=== PATIENT | female | born 1980 | race African-American/Black ===

== ENCOUNTER 2016-11-23 01:40 | Emergency (ER) | payer OTHER ==
[~2016-11-23] VITALS: Ht 177.8 cm; Wt 85.0 kg
[~2016-11-23 01:40] MED LIST: LISI-360 PO; MAXA10TA2 PO
[2016-11-23 01:44] VITALS: BP 139/94; PULSE 64; RESP 16; TEMP 98.6; O2SAT 100
[2016-11-23 02:11] VITALS: BP 137/98; PULSE 71; RESP 18; O2SAT 100
[2016-11-23] MEDS ORDERED: LISI10TA3 PO (02:11)
[2016-11-23] MEDS ORDERED: IMIT25TA PO (02:13)
[2016-11-23] MEDS ORDERED: SODIUM CHLOR 0.9% 1000 ML INJ 1,000 ML IV ONE (02:46)
[2016-11-23] MEDS ORDERED: PROCHLORPERAZINE INJ 10 MG/2 ML VIAL IVP ONE (03:00)
[2016-11-23] MEDS ORDERED: ACETAMINOPHEN 325 MG TAB PO ONE (03:00)
[2016-11-23] MEDS ORDERED: diphenhydrAMINE HCL 50 MG/ML VIAL IVP ONE (03:00)
[2016-11-23] MEDS ORDERED: SODIUM CHLORIDE 0.9% FLUSH 10 ML FLUSH IVF PRN (03:00)
[2016-11-23] MEDS ORDERED: PROM25TA5 PO (03:02)
--- NOTE | 2016-11-23 03:02 | PD ---
HPI Chief Complaint: Headache Time Seen by Provider: 02:28 Travel History International Travel<30 days: No Contact w/Intl Traveler<30days: No Traveled to known affect area: No History of Present Illness HPI 36-year-old female arrives complaining of headache for 3 days. Onset occurred while she was asleep. The pain is primarily in the right temporoparietal scalp. He's had nausea and vomiting. She reports photophobia and phonophobia. She has a history of migraines. Initially it was intermittent out constant. Pain is severe. Tylenol and ibuprofen were marginally helpful. PFSH Past Medical History Diminished Hearing: No Hypertension: Yes Immunizations Current: Yes Migraines: Yes Influenza Vaccination: No ?: Not LMP: november 2016 : 3 Para: 2 Miscarriage: 1 : 1 Tubal Ligation: Yes Social History Alcohol Use: No Tobacco Use: No Substance Use: Yes (marijuana) Allergies-Medications (Allergen,Severity, Reaction): Coded Allergies: No Known Allergies (Verified , 11/23/16) Reported Meds & Prescriptions Reported Meds & Active Scripts Active Phenergan (Promethazine HCl) 25 Mg Tab 25 Mg PO Q6H PRN Reported Imitrex (Sumatriptan Succinate) 25 Mg Tab 25 Mg PO ONCE PRN If a satisfactory response has not been obtained at 2 hours, a second dose may be administered Lisinopril 10 Mg Tab 10 Mg PO DAILY Review of Systems Except as stated in HPI: all other systems reviewed are Neg General / Constitutional: No: Fever Cardiovascular: No: Syncope Neurologic: Positive: Headache Physical Exam Narrative GENERAL: 36-year-old female pleasant well-nourished well-developed SKIN: Focused skin assessment warm/dry. HEAD: Atraumatic. Normocephalic. EYES: No scleral icterus. No injection or drainage. Extraocular muscles are normal range of motion. Pupils equal and reactive to light. ENT: No nasal bleeding or discharge. Mucous membranes pink and moist. NECK: Trachea midline. No JVD. CARDIOVASCULAR: Regular rate and rhythm. No murmur appreciated. RESPIRATORY: No accessory muscle use. Clear to auscultation. Breath sounds equal bilaterally. GASTROINTESTINAL: Abdomen soft, non-tender, nondistended. Hepatic and splenic margins not palpable. MUSCULOSKELETAL: No obvious deformities. No clubbing. No cyanosis. No edema. NEUROLOGICAL: Awake and alert. No obvious cranial nerve deficits. Motor grossly within normal limits. Normal speech. PSYCHIATRIC: Appropriate mood and affect; insight and judgment normal. Data Data Last Documented VS Vital Signs Date Time Temp Pulse Resp B/P Pulse Ox O2 Delivery O2 Flow Rate FiO2 11/23/16 03:39 55 16 133/90 100 11/23/16 02:11 Room Air 11/23/16 01:44 98.6 Vital signs reviewed Orders Ecg Monitoring (11/23/16 02:46) Iv Access Insert/Monitor (11/23/16 02:46) Oximetry (11/23/16 02:46) Sodium Chloride 0.9% Flush (Ns Flush) (11/23/16 03:00) Acetaminophen (Tylenol) (11/23/16 03:00) Prochlorperazine Inj (Compazine Inj) (11/23/16 03:00) Diphenhydramine Inj (Benadryl Inj) (11/23/16 03:00) Sodium Chlor 0.9% 1000 Ml Inj (Ns 1000 M (11/23/16 02:46) MDM Medical Decision Making Medical Screen Exam Complete: Yes Emergency Medical Condition: Yes Medical Record Reviewed: Yes Differential Diagnosis Migraine, tension headache, cluster headache, meningitis, intracranial hemorrhage, cerebral thrombosis Narrative Course Upon reassessment at 335AM, the patient is resting comfortably and feels better , is alert and in no distress. The patients results and examination findings were discussed. The repeat examination is unremarkable and benign. The history , exam, diagnostic testing, and current condition do not suggest any significant pathology to warrant further testing, continued ED treatment, admission, or surgical evaluation at this point. The vital signs have been stable. The patient does not have uncontrollable pain, intractable vomiting, or other significant symptoms. The patient's condition is stable and appropriate for discharge. The patient will pursue further outpatient evaluation with a primary care physician or other designated or consulting physician as indicated in the discharge instructions. The patient expressed understanding and was agreeable with this plan. Diagnosis Primary Impression: Headache Qualified Code: R51 - Nonintractable headache, unspecified chronicity pattern , unspecified headache type Referrals: Primary Care Physician 2 days Additional Instructions: You have a choice when it comes to health care, and we are glad that you chose [facility]. Hopefully, we have met your expectations on today's visit. You are welcome to return to [facility] at any time, as we are committed to meeting the health care needs of our community. Med/Other Pt SpecificInfo: Prescription(s) given Scripts Promethazine (Phenergan)25 Mg Tab25 Mg PO Q6H PRN (Nausea/Vomiting) #10 TAB Ref 0 Prov:Jesse Good MD 11/23/16 Disposition: 01 DISCHARGE HOME Condition: Stable Jesse Good MD November 23, 2016 03:02
[2016-11-23 03:39] VITALS: BP 133/90
== END 2016-11-23 03:55 | disposition home or self-care (01) ==
LOC: NEPC 01:40
DX: R51 Headache (principal); I10 Essential (primary) hypertension; F12.90 Cannabis use, unspecified, uncomplicated
CPT/HCPCS: 96361; 96374; 96375; 99283; J0780; J1200; J7030